=== PATIENT | male | born 1985 | race Caucasian/White ===

== ENCOUNTER 2018-11-12 16:48 | Emergency (ER) | payer MEDICAID ==
[~2018-11-12] VITALS: Ht 177.8 cm; Wt 85.9 kg
[2018-11-12 16:53] VITALS: Ht 177.8 cm; Wt 85.9 kg
[2018-11-12] MEDS ORDERED: NEURONTIN 300300 MG PO (16:55)
[2018-11-12] MEDS ORDERED: BUPROPION HCL75 MG PO (16:55)
[2018-11-12] MEDS ORDERED: DOXEPIN HCL10 MG PO (16:56)
[2018-11-12 19:21] VITALS: BP 140/90
== END 2018-11-12 19:21 | disposition home or self-care (01) ==
LOC: D.ER 16:48
DX: F43.20 Adjustment disorder, unspecified (principal); Z86.19 Personal history of other infectious and parasitic diseases; Z86.59 Personal history of other mental and behavioral disorders; F17.200 Nicotine dependence, unspecified, uncomplicated